=== PATIENT | male | born 1980 | race Caucasian/White ===

== ENCOUNTER 2018-06-10 23:53 | Emergency (ER) | payer SELFPAY ==
[2018-06-10 23:54] VITALS: BP 115/79; PULSE 127; RESP 16; TEMP 36.8; O2SAT 98; BMI 21.7
--- NOTE | 2018-06-11 00:21 | ED.RN ---
PATIENT GOT UP AND RAN DOWN HALLWAY AND RIPPED OUT MEDICAL HEART LEADS AT THIS TIME. PATIENT REFUSING TO GO BACK INTO THE ROOM AT THIS TIME. PATIENT SEEN BY ER DOCTOR IN HALLWAY. PATIENT REFUSING MEDICAL TREATMENT OR CARE KEEPS YELLING CALL THE POLICE ND HAVE THEM ARREST ME I DONT WANT TO BE HERE. PATIENT ABLE TO ANSWER BASIC QUESTIONS. PT SIGNED AMA PAPERWORK PATIENT ESCORTED OUT THE DOORS AND TOOK OFF RUNNING DOWN THE STREET. PT WITNESSED LEAVING THE PROPERTY AT THIS TIME.
--- NOTE | 2018-06-11 00:23 | ED.DCSUM_ITS ---
- ER Visit Summary Date of Service: 06/11/18 Chief Complaint: Medical evaluation History of Present Illness: The patient is a 37 M brought in by EMS being found outside his home in the street, he was trying a shot of something down his throat to get something out. Patient evaluated outside the room due to not wanting to go in the room for my evaluation. He reports I am going to tonight. States unable to swallow. Patient not cooperative with additional history. He reports to call the police to come get him he has hit and run warrant. Records reviewed noting a history of Crohn's disease, evaluation 2017. No surgical history. Physical Examination: General: Alert and oriented ?3, not cooperative HEENT: Normocephalic, atraumatic. Moist mucosa membranes. Patient with a swollen uvula, tonsils 1+ symmetric, no trismus. Neck: supple, nontender. Cardiovascular: Regular tachycardic rate and rhythm, no murmurs Respiratory: Normal breath sounds, symmetric, no distress Abdomen: Soft, nontender, nondistended Extremities: Nontender, no edema, pulses intact ?4 Neuro: no focal neurological deficits. Test Results: [] Emergency Department Course and Treatment: Patient evaluated in the [facility], exam which he allowed notes uvulitis. This likely causing his symptoms. He had 1+ symmetric tonsils. Discussed with patient extensively ago in the room for evaluation and treatment with possible lab draws and steroids for further workup. He states he did not want to be evaluated he is alert and oriented x3. Patient signed out AGAINST MEDICAL ADVICE. Treatment Plan: [] Disposition: Discharge Impression: Uvulitis This note was generated with Tw[employer] dictation software. It may contain incorrect words, spelling, and punctuation that were not noted in review of the chart prior to signing ED Disposition - Plan for ED Patient: Disposition: Home or Assisted Living Chief Complaint: General Illness Diagnosis: Uvulitis Referrals: Care Physician,No Primary [Primary Care Provider] -
== END 2018-06-11 00:15 | disposition left against medical advice (07) ==
PROVIDERS: Emergency Provider Emergency Medicine
DX: K12.2 Cellulitis and abscess of mouth (principal); Z72.0 Tobacco use; Z53.21 Procedure and treatment not carried out due to patient leaving prior to being seen by health care provider
CPT/HCPCS: 99283; J3486

== ENCOUNTER 2018-06-11 01:08 | Inpatient (IN) | payer SELFPAY ==
[2018-06-11] VITALS (28 sets, daily range): BP systolic 93–125; BP diastolic 54–88; PULSE 74–137; RESP 13–28; TEMP 36.2–37.3; O2SAT 96–100; BMI 22.6; BMI 22.4; BMI 22.5
--- NOTE | 2018-06-11 01:12 | CT_ITS ---
STUDY: CT SOFT TISSUE NECK WITH CONTRAST REASON FOR EXAM: Male, 37 years old. Uvulitis, trouble swallowing, elevated bili obesity, history of substance abuse. RADIATION DOSAGE (If Supplied By Facility): CTDIvol = ( 16.96 ) mGy, DLP = ( 516.74 ) mGycm TECHNIQUE: The patient was scanned in a multi-detector CT scanner. High resolution transaxial imaging was performed following intravenous administration of 75 ml of Isovue 300 contrast material. Sagittal and coronal images were reconstructed. Individualized dose optimization techniques were used for this CT. COMPARISON: None. FINDINGS: Normal bilateral parotid glands. Normal bilateral heat engineering teacher spaces. Normal bilateral parapharyngeal spaces. Normal bilateral carotid spaces. Normal bilateral sublingual and submandibular glands and spaces. Normal visualized nasopharynx. Normal retropharyngeal space. Normal perivertebral space. Normal visualized bilateral faucial tonsils. The visualized tongue, tongue base and oropharynx are normal. The uvula tip is enlarged and low attenuated most consistent with edema measuring axial 1 x 1.2 cm. Image 55 series 2. The visualized cervical lymph nodes (levels I-) are within normal size limits, and maintain normal morphology. There is no demonstrated solid or cystic mass lesion. There is no abnormal contrast enhancement. Normal epiglottis, bilateral vallecula and hypopharynx. The pre-epiglottic and paraglottic adipose spaces are normal. Normal visualized bilateral piriform sinuses, aryepiglottic folds, vocal cords, and arytenoid-cricoid articulations. Normal subglottic trachea. Normal bilateral lobes of the thyroid gland. Septal apical cysts. There is no demonstrated pneumothorax. Small sclerosed opacified right maxillary sinus consistent with chronic disease. Normal visualized cervical spine. The bilateral mastoid air cells are clear. CT/Soft Tissue Neck WITH Contrast IMPRESSION: Isolated inflammation of the uvula with edema suspected along it's tip. No abscess, collection, airway compromise or epiglottitis. Chronic right maxillary sinusitis. Electronically Signed: Rowena Yoder MD at 2:36 EDT , Service support ,
[2018-06-11] MEDS: Ziprasidone IM 20 MG/ML VIAL IM (01:20)
[2018-06-11 01:27] LABS: Absolute Lymphocyte Count 1.92 X10^3/ul (0.83-4.51); Absolute Neutrophil Count 9.3 X10^3/uL (2.0-7.7); Basophil# 0.06 X10^3/uL; Basophil% 0.5 % (0-1); Eosinophil# 0.01 X10^3/uL; Eosinophils% 0.1 % (0-5); Hematocrit 40.1 % (40-54); Hemoglobin 14.4 g/dl (13.0-16.5); Lymphocyte # 1.92 X10^3/ul (4.0); Lymphocyte % 15.2 % (19-41); Mean Corp Hgb Conc 35.9 g/gl (32-36); Mean Corpuscular Hgb 30.8 pg (27.0-32.0); Mean Corpuscular Volume 85.7 fL (80-94); Mean Platelet Vol. 8.6 fl (6.2-12.0); Monocyte# 1.37 X10^3/uL; Monocyte% 10.8 % (0-10); Neutrophil # 9.26 X10^3/uL (2.7-7.7); Neutrophil % 73.2 % (47-70); Platelet Count 367 K/mm3 (150-450); RBC Distribution Width CV 12.7 % (11.6-14.6); RBC Distribution Width SD 39.1 fl (35.1-43.9); Red Blood Count 4.68 M/mm3 (4.6-6.2); White Blood Count 12.7 K/mm3 (4.4-11.0)
[2018-06-11 01:28] LABS: POSITIVE COUNT NO; POSITIVE DIFFERENTIAL NO; POSITIVE MORPHOLOGY NO
[2018-06-11] MEDS: 0.9% Normal Saline 1,000 ML 150 ML IV ×2 (01:29→05:49)
[2018-06-11 01:36] LABS: International Normalized Ratio 1.1; Partial Thromboplast Time 29.6 Seconds (24.1-36.2); Prothrombin Time (Protime)PT. 14.3 SECONDS (11.7-14.9)
[2018-06-11 01:44] LABS: Alcohol, Blood (Medical)-Serum < 3.0 mg/dL
[2018-06-11 01:46] LABS: AST(SGOT) 47 U/L (15-37); Alanine Aminotransfer ALT/SGPT 32 U/L (16-61); Albumin, Serum 4.3 g/dL (3.2-5.0); Alkaline Phosphatase 78 U/L (45-117); Anion Gap 14 (5-15); BUN 18 mg/dL (7-18); BUN/Creat Ratio 13.4 RATIO (10-20); Bilirubin, Direct 0.25 mg/dL (0.00-0.30); Calcium,Total 9.1 mg/dL (8.5-10.1); Chloride 103 mmol/L (98-107); Creatinine, Serum 1.34 mg/dL (0.70-1.30); EST Glomerular Filtration Rate 64 mL/min (>60); Est Glom Filt Rate - Afr Amer 78 mL/min (>60); Estimated Creatinine Clearance 73.46 ml/min; Glucose 102 mg/dL (74-106); Potassium 3.4 mmol/L (3.5-5.1); Protein, Total 8.3 g/dL (6.4-8.2); Sodium Level 139 mmol/L (136-145)
--- NOTE | 2018-06-11 01:53 | ED.VISSUMM ---
- ER Visit Summary Date of Service: 06/11/18 Chief Complaint: Mental health evaluation, trouble swallowing History of Present Illness: The patient is a 37 M patient brought in by PD after leaving here AMA less than 1 hour ago. Seen by myself, reported trouble swallowing however did not want any evaluation. He had a swollen uvula and refused testing. Reported by police, patient was running around outside trying to get into other people's cars, had concerns of safety therefore brought here. Patient pink slipped by police. He denied any suicidal or homicidal ideations. Records no history of Crohn's disease. No surgical history. Physical Examination: Exam on second visit he refused for me to evaluate. Patient was agitated coming into the ED by police. He required medications. My exam from less than 1 hour ago in the hallway noted a swollen uvula, 1+ symmetric tonsils. No trismus. Triage note heart rate tachycardic. And tachypneic. Patient moving all 4 extremities. Test Results: WBC 12.7. Hemoglobin 14.4. Creatinine 1.34. Liver enzymes normal. Lactic acid 3.5. Rapid strep negative. Alcohol negative. Blood culture x2 pending. Urine tox pending. CT scan soft tissue neck: Isolated swelling of uvula. Patent airway. Normal epiglottis. Emergency Department Course and Treatment: Patient tachycardic, tachypneic, visualize uvulitis. Sepsis protocol initiated. Patient was agitated on arrival, was given Geodon IM. Labs white count 12.7. Lactic acid 3.5. He was given Decadron initially. CT scan noted isolated uvulitis. Normal epiglottis rapid strep is negative. Given 30 cc/kg bolus. He started on Unasyn for coverage. He was in four-point restraints due to his agitation. Urine tox is pending. Patient lactic acid is 3.5, he does meet severe sepsis criteria. At this time cannot medically clear him for his agitation and reported psychosis from PD. Hospitalist is on page for discussion for admission. Treatment Plan: [] Disposition: Admission Impression: 1. Severe sepsis 2. Uvulitis 3. Agitation This note was generated with [employer] software. It may contain incorrect words, spelling, and punctuation that were not noted in review of the chart prior to signing ED Disposition - Plan for ED Patient: Disposition: Acute Care Hospital [facility] Chief Complaint: Mental Health Diagnosis: Severe sepsis, Uvulitis, Agitation Referrals: Care Physician,No Primary [Primary Care Provider] -
--- NOTE | 2018-06-11 01:56 | ED.DCSUM_ITS ---
- ER Visit Summary Date of Service: 06/11/18 Chief Complaint: Mental health evaluation, trouble swallowing History of Present Illness: The patient is a 37 M patient brought in by PD after leaving here AMA less than 1 hour ago. Seen by myself, reported trouble swallowing however did not want any evaluation. He had a swollen uvula and refused testing. Reported by police, patient was running around outside trying to get into other people's cars, had concerns of safety therefore brought here. Patient pink slipped by police. He denied any suicidal or homicidal ideations. Records no history of Crohn's disease. No surgical history. Physical Examination: Exam on second visit he refused for me to evaluate. Patient was agitated coming into the ED by police. He required medications. My exam from less than 1 hour ago in the hallway noted a swollen uvula, 1+ symmetric tonsils. No trismus. Triage note heart rate tachycardic. And tachypneic. Patient moving all 4 extremities. Test Results: WBC 12.7. Hemoglobin 14.4. Creatinine 1.34. Liver enzymes normal. Lactic acid 3.5. Rapid strep negative. Alcohol negative. Blood culture x2 pending. Urine tox pending. CT scan soft tissue neck: Isolated swelling of uvula. Patent airway. Normal epiglottis. Emergency Department Course and Treatment: Patient tachycardic, tachypneic, visualize uvulitis. Sepsis protocol initiated. Patient was agitated on ar rival, was given Geodon IM. Labs white count 12.7. Lactic acid 3.5. He was given Decadron initially. CT scan noted isolated uvulitis. Normal epiglottis rapid strep is negative. Given 30 cc/kg bolus. He started on Unasyn for coverage. He was in four-point restraints due to his agitation. Urine tox is pending. Patient lactic acid is 3.5, he does meet severe sepsis criteria. At this time cannot medically clear him for his agitation and reported psychosis from PD. Hospitalist is on page for discussion for admission. Treatment Plan: [] Disposition: Admission Impression: 1. Severe sepsis 2. Uvulitis 3. Agitation This note was generated with [employer]ation software. It may contain incorrect words, spelling, and punctuation that were not noted in review of the chart prior to signing ED Disposition - Plan for ED Patient: Disposition: Acute Care Hospital [facility] Chief Complaint: Mental Health Diagnosis: Severe sepsis, Uvulitis, Agitation Referrals: Care Physician,No Primary [Primary Care Provider] -
[2018-06-11 01:59] LABS: Lactic Acid 3.5 mmol/L (0.4-2.0)
--- NOTE | 2018-06-11 03:27 | PCM.HP.STD ---
Problem List (1) Uvulitis Status: Acute (2) Severe sepsis Status: Acute (3) Agitation Status: Acute History of Present Illness Date of Admission: 06/11/18 Chief Complaint: Trouble swallowing The patient is a 37 year old M with no PMH initially presented for trouble swallowing. He left AMA and then was brought back in by police for trying to break in to multiple vehicles. He was severely agitated and was placed in restraints and given a dose of geodon. The geodon was effective, however, he is now not alert and not arousable so history is obtained from the chart. On the initial evaluation the ER physician noted a swollen uvula and ordered a CT neck which demonstrated isolated swelling of the tip of the uvula. His airway was ok, but a dose of decadron was given and he was started on unasyn. Labs demonstrate a leukocytosis and an elevated lactate. Past Medical History Allergies codeine Allergy (Verified 06/11/18 01:12) Shortness of breath Home Medications: Ambulatory Orders Medication Instructions Recorded NK 06/11/18 Smoking Status: Unknown if ever smoked Review of Systems Unable to obtain accurate/complete ROS d/t: sedation from geodon VTE Information - Inpt Only VTE Present on Admission: No Patient Problems: Active and Suspected Problems Uvulitis (Acute) Severe sepsis (Acute) Agitation (Acute) - Physical Exam General: - - sedated HEENT: Atraumatic, PERRLA, Normocephalic Oral: Moist Mucosa, - - could not evaluated uvula d/t sedation Neck: No JVD Lungs: Clear to auscultation, Normal air movement, No rhonchi, No wheeze, No rales Cardiovascular: Regular rate, Regular Rhythm, Normal S1, Normal S2, No murmurs Abdomen: Soft, Non-Distended, No Hepato-splenomegaly Extremities: No edema, Capillary Refill Less than 3 Seconds Skin: No rashes, No breakdown Comment: exam limited d/t sedation Vital Signs Temp Pulse Resp BP Pulse Ox 97.1 F L 93 16 108/64 100 06/11/18 01:09 06/11/18 02:39 06/11/18 02:39 06/11/18 02:39 06/11/18 02:39 Oxygen Flow Rate (L/min) 2 Oxygen Delivery Method Nasal Cannula Weight: 148 lb 12.992 oz Body Mass Index (BMI) 22.6 Microbiology Past 72 Hours 06/11/18 01:34 Group A Streptococcus Rapid Screen - Preliminary Mucosa - Nasopharyngeal Laboratory Tests Past 24 Hrs 06/11/18 06/11/18 06/11/18 01:15 01:15 01:15 WBC 12.7 H RBC 4.68 Hgb 14.4 Hct 40.1 MCV 85.7 MCH 30.8 MCHC 35.9 RDW 12.7 RDW Differential 39.1 Plt Count 367 MPV 8.6 Immature Gran % (Auto) 0.200 Neut % (Auto) 73.2 H Lymph % (Auto) 15.2 L [place] % (Auto) 10.8 H Eos % (Auto) 0.1 Baso % (Auto) 0.5 Absolute Neuts (auto) 9.3 H Absolute Lymphs (auto) 1.92 Total Counted Not Reportable PT 14.3 INR 1.1 APTT 29.6 Sodium 139 Potassium 3.4 L Chloride 103 Carbon Dioxide 22.0 Anion Gap 14 BUN 18 Creatinine 1.34 H Estim Creat Clear Calc 73.46 Est GFR (MDRD) Af Amer 78 Est GFR (MDRD) Non-Af 64 BUN/Creatinine Ratio 13.4 Glucose 102 Lactic Acid Calcium 9.1 Total Bilirubin 1.30 H Direct Bilirubin 0.25 AST 47 H ALT 32 Alkaline Phosphatase 78 Total Protein 8.3 H Albumin 4.3 Globulin 4.0 Ethyl Alcohol 06/11/18 06/11/18 01:15 01:15 WBC RBC Hgb Hct MCV MCH MCHC RDW RDW Differential Plt Count MPV Immature Gran % (Auto) Neut % (Auto) Lymph % (Auto) [place] % (Auto) Eos % (Auto) Baso % (Auto) Absolute Neuts (auto) Absolute Lymphs (auto) Total Counted PT INR APTT Sodium Potassium Chloride Carbon Dioxide Anion Gap BUN Creatinine Estim Creat Clear Calc Est GFR (MDRD) Af Amer Est GFR (MDRD) Non-Af BUN/Creatinine Ratio Glucose Lactic Acid 3.5 H Calcium Total Bilirubin Direct Bilirubin AST ALT Alkaline Phosphatase Total Protein Albumin Globulin Ethyl Alcohol < 3.0 Assessment/Plan All Active Problems Uvulitis (Acute) Severe sepsis (Acute) Agitation (Acute) 1. Sepsis d/t uvulitis - Will continue with the unasyn - GAS was negative, blood culture pending - Will admit to stepdown to monitor airway - May need ENT consult as well as psych given the way he was brought to the hospital - IVF@150 for now with the elevated lactate, repeat in a few hours - Currently maintaining airway and saturation is normal - CT with isolated uvulitis 2. Agitation - Unsure as to why - UDS is pending, if unremarkable may need psych evaluation - Will conisder antipsychotic again if he becomes agitated again - c/w restraints for now DVT: None Diet: Regular Code Visit Inpatient E&M: 02367 Init Hosp L3
[2018-06-11 05:11] LABS: Hematocrit 38.6 % (40-54); Hemoglobin 13.1 g/dl (13.0-16.5); Mean Corp Hgb Conc 33.9 g/gl (32-36); Mean Corpuscular Hgb 29.7 pg (27.0-32.0); Mean Corpuscular Volume 87.5 fL (80-94); Mean Platelet Vol. 8.8 fl (6.2-12.0); Platelet Count 315 K/mm3 (150-450); RBC Distribution Width CV 12.8 % (11.6-14.6); RBC Distribution Width SD 40.1 fl (35.1-43.9); Red Blood Count 4.41 M/mm3 (4.6-6.2); White Blood Count 10.3 K/mm3 (4.4-11.0)
[2018-06-11 05:19] LABS: Scan Indicated on CBC? Y/N NO
[2018-06-11 05:22] LABS: Reflex Lactate? Y
[2018-06-11 05:25] LABS: Anion Gap 11 (5-15); BUN 18 mg/dL (7-18); BUN/Creat Ratio 22.8 RATIO (10-20); Calcium,Total 8.7 mg/dL (8.5-10.1); Chloride 105 mmol/L (98-107); Creatinine, Serum 0.79 mg/dL (0.70-1.30); EST Glomerular Filtration Rate 118 mL/min (>60); Est Glom Filt Rate - Afr Amer 143 mL/min (>60); Glucose 83 mg/dL (74-106); Potassium 4.2 mmol/L (3.5-5.1); Sodium Level 141 mmol/L (136-145)
[2018-06-11 05:29] LABS: Lactic Acid 0.7 mmol/L (0.4-2.0)
[2018-06-11 05:48] LABS: Color, Urine Yellow (Yellow); Glucose, Dipstick Normal (Normal); Ketone-Dipstick 50 mg/dl (Negative); Leukocyte Esterase-Dipstick 100 /ul (Negative); Nitrite-Dipstick Negative (Negative); Occult Blood-Urine 10 /ul (Negative); Protein-Dipstick 30 mg/dl (Negative); Specific Gravity, Urine 1.025 (1.002-1.030); Urine Bilirubin Dipstick Negative (Negative); Urine Clarity Sl. Cloudy (Clear); Urine Urobilinogen Normal (Normal)
[2018-06-11 06:39] LABS: Amphetamine Urine VISTA POSITIVE (<1000 ng/mL); Barbiturate Urine VISTA NEGATIVE (< 200 ng/mL); Benzodiazepine Urine VISTA NEGATIVE (< 200 ng/mL); Cocaine Urine VISTA NEGATIVE (< 300 ng/mL); Ecstacy Urine VISTA POSITIVE (< 500 ng/mL); Methadone Urine VISTA NEGATIVE (< 300 ng/mL); PCP Urine VISTA NEGATIVE (< 25 ng/mL); THC Urine VISTA POSITIVE (< 50 ng/mL); Vista UDS pH Range 5
--- NOTE | 2018-06-11 07:44 | PN_ITS ---
Progress Note Patient is a 37-year-old gentleman admitted with agitation patient had apparently signed himself from the emergency department AGAINST MEDICAL ADVICE after he presented with difficulty swallowing imaging studies demonstrated isolated inflammation of the uvula. He was brought back to the ED by the anesthesiology crna did receive Geodon antibiotics initiated and patient admitted to intensive care unit for subsequent management Patient has been seen and examined currently resting and sleeping. His initial assessment including history and physical diagnostic data and management orders reviewed will follow. Clinical Impression(s) from Imaging Studies Soft Tissue Neck CT 06/11/18 01:12 IMPRESSION: Isolated inflammation of the uvula with edema suspected along it's tip. No abscess, collection, airway compromise or epiglottitis. Chronic right maxillary sinusitis. Electronically Signed: Rowena Yoder MD at 2:36 EDT , Service support ,
[2018-06-11] MEDS: 0.9% Normal Saline 1,000 ML 100 ML IV ×2 (08:28→19:45)
[2018-06-11] MEDS: chlordiazePOXIDE 25 MG Capsule 50 MG PO ×3 (12:00→22:36)
--- NOTE | 2018-06-11 13:29 | CM.UR ---
Met face to face with patient. Introduced myself and explained my role as family preservation caseworker. Denies any discharge needs at this time. Patient asked if I have a detainer for him. I asked him if he had a warrant and he said he thinks so. I spoke with Raimundo, EXECUTIVE ADMIN who was not aware of plans to pick patient up at discharge. patient's tox screen was + for amphetamines, MDMA and marijuana. Case management will continue to follow for any needs that may arise. Deann Ross RN, [facility].
[2018-06-11] MEDS: QUEtiapine 25 MG Tablet PO (22:34)
[2018-06-12] VITALS (11 sets, daily range): BP systolic 94–103; BP diastolic 60–74; PULSE 66–99; RESP 13–20; TEMP 36.2–36.5; O2SAT 98–100
[2018-06-12] MEDS: chlordiazePOXIDE 25 MG Capsule 50 MG PO (05:56)
[2018-06-12] MEDS: 0.9% Normal Saline 1,000 ML 100 ML IV (05:56)
--- NOTE | 2018-06-12 07:50 | PCM.PN.HOSP ---
Patient Problems: Active and Suspected Problems Uvulitis (Acute) Severe sepsis (Acute) Agitation (Acute) Subjective: Patient is a 37-year-old gentleman admitted with agitation patient had apparently signed himself from the emergency department AGAINST MEDICAL ADVICE after he presented with difficulty swallowing imaging studies demonstrated isolated inflammation of the uvula. He was brought back to the ED by the veterinary milk specialist did receive Geodon antibiotics initiated and patient admitted to intensive care unit for subsequent management Patient did receive Ativan for agitation. Was subsequently placed on tapering dose of Librium. Was started on Seroquel during the night. Objective: GENERAL: Sleeping easily arousable HEENT: Atraumatic; moist oral mucosa EYES; Anicteric, Normal Conjunctiva NECK; supple, normal thyroid, no distended JVD. RESPIRATORY: Diminished to auscultation bilaterally, CARDIOVASCULAR: Regular S1 S2, no audible murmurs GI: soft, non-tender, normoactive bowel sounds, : No Renal angle tenderness; No felix EXTREMITIES: No edema, no clubbing, no cyanosis. MUSCULOSKELETAL: No Joint Tenderness; no muscle waisting NEURO: Awake; no lateralizing signs. SKIN: No Rash PSYCH; Normal affect Vitals/I&O's: Vital Signs Temp Pulse Resp BP Pulse Ox 97.7 F L 76 15 96/63 98 06/12/18 06:00 06/12/18 07:18 06/12/18 07:00 06/12/18 07:00 06/12/18 07:28 Oxygen Flow Rate (L/min) 2 Oxygen Delivery Method Room Air Weight: 67 kg Body Mass Index (BMI) 22.4 Intake and Output for Last 24 Hours 06/10/18 06/11/18 06/12/18 23:59 23:59 23:59 Intake Total 3319 / 3319 852 / 852 Output Total 2900 / 2900 150 / 150 Balance 419 / 419 702 / 702 Microbiology Past 72 Hours 06/11/18 01:34 Mucosa - Nasopharyngeal Group A Streptococcus Rapid Screen - Preliminary Current Medications Acetaminophen (Tylenol) 500 mg PO Q4H PRN PRN PRN Reason: Temp > 100.4 F Al Hydroxide/Mg Hydroxide (Mylanta Ii) 30 ml PO Q6H PRN PRN PRN Reason: dyspesia Bisacodyl (Dulcolax) 10 mg RECTAL DAILY PRN PRN Reason: Constipation Chlordiazepoxide (Librium) 50 mg PO Q8H [facility]; Taper Stop: 06/14/18 13:29 Last Admin: 06/12/18 05:56 Dose: 50 mg Ampicillin Sodium/Sulbactam (Sodium 3 gm/ Sodium Chloride) 112 mls @ 150 mls/hr IV Q8 LISA Last Admin: 06/12/18 05:56 Dose: 150 mls/hr Sodium Chloride () 1,000 mls @ 100 mls/hr IV .Q10H LISA Last Admin: 06/12/18 05:56 Dose: 100 mls/hr Ibuprofen (Motrin) 600 mg PO Q8H PRN PRN PRN Reason: Mild-Moderate Pain (1-5/10) Lorazepam (Ativan) 1 mg IV Q6H PRN PRN PRN Reason: AGITATION Magnesium Hydroxide (Milk Of Magnesia) 30 ml PO DAILY PRN PRN PRN Reason: Constipation Nicotine (Nicoderm Cq (Pbkc)) 21 mg TRANSDERM. DAILY [facility] Last Admin: 06/11/18 11:55 Dose: 21 mg Ondansetron HCl (Zofran Odt) 4 mg PO Q6H PRN PRN PRN Reason: NAUSEA Quetiapine Fumarate (Seroquel) 25 mg PO Q6H PRN PRN PRN Reason: anxiety, agitation Last Admin: 06/11/18 22:34 Dose: 25 mg Senna (Senokot) 1 tablet PO QHS PRN PRN Reason: Constipation Trazodone HCl (Desyrel) 50 mg PO QHS [facility] Last Admin: 06/11/18 22:34 Dose: Not Given Medical Necessity - Tobacco Use Smoking Status: Unknown if ever smoked Assessment/Plan All Active Problems Uvulitis (Acute) Severe sepsis (Acute) Agitation (Acute) Patient is a 37-year-old gentleman admitted with agitation patient had apparently signed himself from the emergency department AGAINST MEDICAL ADVICE after he presented with difficulty swallowing imaging studies demonstrated isolated inflammation of the uvula. He was brought back to the ED by the veterinary milk specialist did receive Geodon antibiotics initiated and patient admitted to intensive care unit for subsequent management 1. Acute uvulitis patient placed on Unasyn 2. Acute toxic encephalopathy patient urine tox screen was positive for benzos, amphetamines as well as cannabis. Patient was monitored in ICU overnight was placed on tapering dose of Librium as well as Seroquel at night next 3. Polysubstance abuse counseled on cessation 4. Tobacco dependence counseled on cessation, offered nicotine patch for tobacco cravings 5. DVT prophylaxis: Low risk did encouraged early ambulation Active Medications Acetaminophen (Tylenol) 500 mg PO Q4H PRN PRN PRN Reason: Temp > 100.4 F Al Hydroxide/Mg Hydroxide (Mylanta Ii) 30 ml PO Q6H PRN PRN PRN Reason: dyspesia Bisacodyl (Dulcolax) 10 mg RECTAL DAILY PRN PRN Reason: Constipation Chlordiazepoxide (Librium) 50 mg PO Q8H [facility]; Taper Stop: 06/14/18 13:29 Last Admin: 06/12/18 05:56 Dose: 50 mg Ampicillin Sodium/Sulbactam (Sodium 3 gm/ Sodium Chloride) 112 mls @ 150 mls/hr IV Q8 LISA Last Admin: 06/12/18 05:56 Dose: 150 mls/hr Sodium Chloride () 1,000 mls @ 100 mls/hr IV .Q10H [facility] Last Admin: 06/12/18 05:56 Dose: 100 mls/hr Ibuprofen (Motrin) 600 mg PO Q8H PRN PRN PRN Reason: Mild-Moderate Pain (1-5/10) Lorazepam (Ativan) 1 mg IV Q6H PRN PRN PRN Reason: AGITATION Magnesium Hydroxide (Milk Of Magnesia) 30 ml PO DAILY PRN PRN PRN Reason: Constipation Nicotine (Nicoderm Cq (Pbkc)) 21 mg TRANSDERM. DAILY [facility] Last Admin: 06/11/18 11:55 Dose: 21 mg Ondansetron HCl (Zofran Odt) 4 mg PO Q6H PRN PRN PRN Reason: NAUSEA Quetiapine Fumarate (Seroquel) 25 mg PO Q6H PRN PRN PRN Reason: anxiety, agitation Last Admin: 06/11/18 22:34 Dose: 25 mg Senna (Senokot) 1 tablet PO QHS PRN PRN Reason: Constipation Trazodone HCl (Desyrel) 50 mg PO QHS [facility] Last Admin: 06/11/18 22:34 Dose: Not Given Clinical Impression(s) from Imaging Studies Soft Tissue Neck CT 06/11/18 01:12 IMPRESSION: Isolated inflammation of the uvula with edema suspected along it's tip. No abscess, collection, airway compromise or epiglottitis. Chronic right maxillary sinusitis. Electronically Signed: Rowena Yoder MD at 2:36 EDT , Service support , Code Visit Inpatient E&M: 02579 Subs Hosp L3
--- NOTE | 2018-06-12 07:55 | PN_ITS ---
Patient Problems: Active and Suspected Problems Uvulitis (Acute) Severe sepsis (Acute) Agitation (Acute) Subjective: Patient is a 37-year-old gentleman admitted with agitation patient had apparently signed himself from the emergency department AGAINST MEDICAL ADVICE after he presented with difficulty swallowing imaging studies demonstrated isolated inflammation of the uvula. He was brought back to the ED by the grab operator did receive Geodon antibiotics initiated and patient admitted to intensive care unit for subsequent management Patient did receive Ativan for agitation. Was subsequently placed on tapering dose of Librium. Was started on Seroquel during the night. Objective: GENERAL: Sleeping easily arousable HEENT: Atraumatic; moist oral mucosa EYES; Anicteric, Normal Conjunctiva NECK; supple, normal thyroid, no distended JVD. RESPIRATORY: Diminished to auscultation bilaterally, CARDIOVASCULAR: Regular S1 S2, no audible murmurs GI: soft, non-tender, normoactive bowel sounds, : No Renal angle tenderness; No felix EXTREMITIES: No edema, no clubbing, no cyanosis. MUSCULOSKELETAL: No Joint Tenderness; no muscle waisting NEURO: Awake; no lateralizing signs. SKIN: No Rash PSYCH; Normal affect Vitals/I&O's: Vital Signs Temp Pulse Resp BP Pulse Ox 97.7 F L 76 15 96/63 98 06/12/18 06:00 06/12/18 07:18 06/12/18 07:00 06/12/18 07:00 06/12/18 07:28 Oxygen Flow Rate (L/min) 2 Oxygen Delivery Method Room Air Weight: 67 kg Body Mass Index (BMI) 22.4 Intake and Output for Last 24 Hours 06/10/18 06/11/18 06/12/18 23:59 23:59 23:59 Intake Total 3319 / 3319 852 / 852 Output Total 2900 / 2900 150 / 150 Balance 419 / 419 702 / 702 Microbiology Past 72 Hours 06/11/18 01:34 Mucosa - Nasopharyngeal Group A Streptococcus Rapid Screen - Preliminary Current Medications Acetaminophen (Tylenol) 500 mg PO Q4H PRN PRN PRN Reason: Temp > 100.4 F Al Hydroxide/Mg Hydroxide (Mylanta Ii) 30 ml PO Q6H PRN PRN PRN Reason: dyspesia Bisacodyl (Dulcolax) 10 mg RECTAL DAILY PRN PRN Reason: Constipation Chlordiazepoxide (Librium) 50 mg PO Q8H [facility]; Taper Stop: 06/14/18 13:29 Last Admin: 06/12/18 05:56 Dose: 50 mg Ampicillin Sodium/Sulbactam (Sodium 3 gm/ Sodium Chloride) 112 mls @ 150 mls/hr IV Q8 LISA Last Admin: 06/12/18 05:56 Dose: 150 mls/hr Sodium Chloride () 1,000 mls @ 100 mls/hr IV .Q10H LISA Last Admin: 06/12/18 05:56 Dose: 100 mls/hr Ibuprofen (Motrin) 600 mg PO Q8H PRN PRN PRN Reason: Mild-Moderate Pain (1-5/10) Lorazepam (Ativan) 1 mg IV Q6H PRN PRN PRN Reason: AGITATION Magnesium Hydroxide (Milk Of Magnesia) 30 ml PO DAILY PRN PRN PRN Reason: Constipation Nicotine (Nicoderm Cq (Pbkc)) 21 mg TRANSDERM. DAILY [facility] Last Admin: 06/11/18 11:55 Dose: 21 mg Ondansetron HCl (Zofran Odt) 4 mg PO Q6H PRN PRN PRN Reason: NAUSEA Quetiapine Fumarate (Seroquel) 25 mg PO Q6H PRN PRN PRN Reason: anxiety, agitation Last Admin: 06/11/18 22:34 Dose: 25 mg Senna (Senokot) 1 tablet PO QHS PRN PRN Reason: Constipation Trazodone HCl (Desyrel) 50 mg PO QHS [facility] Last Admin: 06/11/18 22:34 Dose: Not Given Medical Necessity - Tobacco Use Smoking Status: Unknown if ever smoked Assessment/Plan All Active Problems Uvulitis (Acute) Severe sepsis (Acute) Agitation (Acute) Patient is a 37-year-old gentleman admitted with agitation patient had apparently signed himself from the emergency department AGAINST MEDICAL ADVICE after he presented with difficulty swallowing imaging studies demonstrated isolated inflammation of the uvula. He was brought back to the ED by the grab operator did receive Geodon antibiotics initiated and patient admitted to intensive care unit for subsequent management 1. Acute uvulitis patient placed on Unasyn 2. Acute toxic encephalopathy patient urine tox screen was positive for benzos, amphetamines as well as cannabis. Patient was monitored in ICU overnight was placed on tapering dose of Librium as well as Seroquel at night next 3. Polysubstance abuse counseled on cessation 4. Tobacco dependence counseled on cessation, offered nicotine patch for tobacco cravings 5. DVT prophylaxis: Low risk did encouraged early ambulation Active Medications Acetaminophen (Tylenol) 500 mg PO Q4H PRN PRN PRN Reason: Temp > 100.4 F Al Hydroxide/Mg Hydroxide (Mylanta Ii) 30 ml PO Q6H PRN PRN PRN Reason: dyspesia Bisacodyl (Dulcolax) 10 mg RECTAL DAILY PRN PRN Reason: Constipation Chlordiazepoxide (Librium) 50 mg PO Q8H [facility]; Taper Stop: 06/14/18 13:29 Last Admin: 06/12/18 05:56 Dose: 50 mg Ampicillin Sodium/Sulbactam (Sodium 3 gm/ Sodium Chloride) 112 mls @ 150 mls/hr IV Q8 LISA Last Admin: 06/12/18 05:56 Dose: 150 mls/hr Sodium Chloride () 1,000 mls @ 100 mls/hr IV .Q10H [facility] Last Admin: 06/12/18 05:56 Dose: 100 mls/hr Ibuprofen (Motrin) 600 mg PO Q8H PRN PRN PRN Reason: Mild-Moderate Pain (1-5/10) Lorazepam (Ativan) 1 mg IV Q6H PRN PRN PRN Reason: AGITATION Magnesium Hydroxide (Milk Of Magnesia) 30 ml PO DAILY PRN PRN PRN Reason: Constipation Nicotine (Nicoderm Cq (Pbkc)) 21 mg TRANSDERM. DAILY [facility] Last Admin: 06/11/18 11:55 Dose: 21 mg Ondansetron HCl (Zofran Odt) 4 mg PO Q6H PRN PRN PRN Reason: NAUSEA Quetiapine Fumarate (Seroquel) 25 mg PO Q6H PRN PRN PRN Reason: anxiety, agitation Last Admin: 06/11/18 22:34 Dose: 25 mg Senna (Senokot) 1 tablet PO QHS PRN PRN Reason: Constipation Trazodone HCl (Desyrel) 50 mg PO QHS [facility] Last Admin: 06/11/18 22:34 Dose: Not Given Clinical Impression(s) from Imaging Studies Soft Tissue Neck CT 06/11/18 01:12 IMPRESSION: Isolated inflammation of the uvula with edema suspected along it's tip. No abscess, collection, airway compromise or epiglottitis. Chronic right maxillary sinusitis. Electronically Signed: Rowena Yoder MD at 2:36 EDT , Service support , Code Visit Inpatient E&M: 66261 Subs Hosp L3
--- NOTE | 2018-06-12 08:27 | DCINST_ITS ---
- Discharge Diagnoses Current Active Problems: Current Active and Chronic Problems Uvulitis (Acute) Severe sepsis (Acute) Agitation (Acute) You will use the following diet at home:: No restrictions Allergies/Adverse Reactions: Allergies codeine Allergy (Verified 06/11/18 01:12) Shortness of breath Medications to take at Discharge Amoxicillin/Potassium Clav [Amox Tr-K Clv 875-125 mg Tab] 1 ea PO BID #20 tab 06/12/18 The following prescriptions were given: Amoxicillin/Potassium Clav [Amox Tr-K Clv 875-125 mg Tab] 1 ea PO BID #20 tab Primary Care Physician: Care Physician,No Primary [Primary Care Provider] - Please follow up with your Primary Care Physician in: in 3-5 days Test Results: Test results from this visit will be discussed in further detail at your follow- up appointment, if applicable. Proposed Discharge Date: 06/12/18
--- NOTE | 2018-06-12 08:27 | PCM.DC.SUM ---
Discharge Date and Diagnosis - Problem List Patient Problems: Active and Suspected Problems Uvulitis (Acute) Severe sepsis (Acute) Agitation (Acute) Date of Admission: 06/11/18 Date of Discharge: 06/12/18 - Primary Discharge Diagnosis Active and Suspected Problems Uvulitis (Acute) Severe sepsis (Acute) Agitation (Acute) Hospital Course and Treatment Imaging Results: Clinical Impression(s) from Imaging Studies Soft Tissue Neck CT 06/11/18 01:12 IMPRESSION: Isolated inflammation of the uvula with edema suspected along it's tip. No abscess, collection, airway compromise or epiglottitis. Chronic right maxillary sinusitis. Electronically Signed: Rowena Yoder MD at 2:36 EDT , Service support , Summary of Care Provided: Patient is a 37-year-old gentleman admitted with agitation patient had apparently signed himself from the emergency department AGAINST MEDICAL ADVICE after he presented with difficulty swallowing imaging studies demonstrated isolated inflammation of the uvula. He was brought back to the ED by the before and after school daycare worker did receive Geodon antibiotics initiated and patient admitted to intensive care unit for subsequent management and also patient has been kept at least 1 more day in view of his agitation however he insisted on being discharged. Prescription was written for Augmentin on discharge 1. Acute uvulitis patient placed on Unasyn; patient was transitioned to Augmentin on discharge 2. Acute toxic encephalopathy patient urine tox screen was positive for benzos, amphetamines as well as cannabis. Patient was monitored in ICU overnight was placed on tapering dose of Librium as well as Seroquel at night next 3. Polysubstance abuse counseled on cessation 4. Tobacco dependence counseled on cessation, offered nicotine patch for tobacco cravings 5. DVT prophylaxis: Low risk did encouraged early ambulation Physical examination GENERAL: Not in distress HEENT: Atraumatic; moist oral mucosa EYES; Anicteric, Normal Conjunctiva NECK; supple, normal thyroid, no distended JVD. RESPIRATORY: Diminished to auscultation bilaterally, CARDIOVASCULAR: Regular S1 S2, no audible murmurs GI: soft, non-tender, normoactive bowel sounds, : No Renal angle tenderness; No felix EXTREMITIES: No edema, no clubbing, no cyanosis. MUSCULOSKELETAL: No Joint Tenderness; no muscle waisting NEURO: Awake; no lateralizing signs. SKIN: No Rash PSYCH; Normal affect Discharge Diet: No Restrictions Home Medications: Medications to take at Discharge Amoxicillin/Potassium Clav [Amox Tr-K Clv 875-125 mg Tab] 1 ea PO BID #20 tab 06/12/18 Following Prescrptions Were Given to Patient: Amoxicillin/Potassium Clav [Amox Tr-K Clv 875-125 mg Tab] 1 ea PO BID #20 tab Primary Care Physician: Care Physician,No Primary [Primary Care Provider] - Please follow up with your Primary Care Physician in: in 3-5 days Disposition: Home Minutes spent on discharge:: 45 Patient Condition:: Stable Medical Necessity - Tobacco Use Smoking Status: Unknown if ever smoked Meaningful Use Info Meaningful Use Diagnoses (Choose all that apply): None applicable Code Visit Inpatient E&M: 00995 Disch Hosp
[2018-06-12] MEDS: QUEtiapine 25 MG Tablet PO (08:37)
--- NOTE | 2018-06-12 08:45 | NURSING ---
Pt walked to main entrance by arturo RN and Seb TILLMAN. Pt walked out doors and was witnessed leaving property via [address].
== END 2018-06-12 08:45 | disposition home or self-care (01) | DRG 871 ==
LOC: ED 02:46 → ICU 07:07
PROVIDERS: Admitting Provider Family Medicine; Emergency Provider Emergency Medicine; Visit Provider Internal Medicine
DX: A41.9 Sepsis, unspecified organism (principal); G92 Toxic encephalopathy; K12.2 Cellulitis and abscess of mouth; R65.20 Severe sepsis without septic shock; Z78.1 Physical restraint status; R45.1 Restlessness and agitation; F19.10 Other psychoactive substance abuse, uncomplicated; F17.200 Nicotine dependence, unspecified, uncomplicated; Z23 Encounter for immunization
CPT/HCPCS: 70491; 80048; 80076; 80307; 80320; 81002; 83605; 85025; 85027; 85610; 85730; 87040; 87086; 87880; 99285; J7030; Q9967; 90686; A4216; G0480; J0295